=== PATIENT | male | born 1985 | race Caucasian/White ===

== ENCOUNTER 2017-04-24 11:54 | Inpatient (IN) | payer BC, OTHER ==
[~2017-04-24] VITALS: Ht 172.7 cm; Wt 71.8 kg
[~2017-04-24 11:54] MED LIST: DICL1GEL28 TOP; MULT-506 PO
[2017-04-24] MEDS ORDERED: LORAZEPAM 1 MG TAB PO STA (13:00)
[2017-04-24] MEDS ORDERED: SERT50TA PO (13:03)
[2017-04-24] MEDS ORDERED: LAMO100T16 PO (13:03)
[2017-04-24] MEDS ORDERED: LISD30CA4 PO (13:03)
[2017-04-24] MEDS ORDERED: HYDR-3124 PO (13:03)
[2017-04-24 13:10] LABS: BASO % 0.2 %; BASO ABS # 0.01 K/uL (0-0.2); EOS % 1.3 %; EOS ABS # 0.07 K/uL (0-0.5); HEMATOCRIT 47.1 % (42-52); HEMOGLOBIN 16.8 g/dL (14.0-18.0); IG# 0.01 K/uL (0.00-0.02); LYMPH % 26.5 %; LYMPH ABS # 1.48 K/uL (1.2-3.4); MEAN CELL VOLUME 84.3 fL (80-100); MEAN CORPUSCULAR HEMOGLOBIN 30.1 pg (25-34); MEAN CORPUSCULAR HGB CONC 35.7 g/dl (32-36); MEAN PLATELET VOLUME 9.5 fL (7.4-10.4); MONO % 6.3 %; MONO ABS # 0.35 K/uL (0.11-0.59); NEUT % 65.5 %; NEUT ABS # 3.67 K/uL (1.4-6.5); PLATELET COUNT 206 K/uL (130-400); RED CELL DISTRIBUTION WIDTH SD 39.7 fL (36.4-46.3); WHITE BLOOD COUNT 5.59 K/uL (4.8-10.8)
--- NOTE | 2017-04-24 13:20 | EMERGENCY ROOM VISIT NOTE ---
History Report prepared by Arian: Heidi Luu Under the Supervision of: Dr. Jj Villatoro M.D. First contact with patient: 12:54 Chief Complaint: MENTAL HEALTH EVALUATION Stated Complaint: Mental Health Evaluation History of Present Illness The patient is a 31 year old male with a past medical history of bipolar disorder who presents to the ED with a cc of worsening suicidal ideations beginning 4 weeks ago. The patient states that he began having marital problems one year ago. Around that time, he began battling with his for custody of their child. The patient states that he spent 6 months sleeping on the couches of family and friends, as well as in his car. He notes he became upset when he found out his had been seeing someone else while they were . The patient denies any irregular sleeping patterns. The patient states he is currently suicidal, but does not have the urge to hurt anyone else. He notes that he drinks a couple of beers 3-4 times a week. The patient states that the only time he did drugs was 3 days ago, noting he did LSD with a friend. The patient states he is willing to do inpatient treatment. He notes the last time he smoked was 6 weeks ago, noting he last smoked marijuana in December. The patient states that his last bipolar manic episode was 2 years ago, noting he is on medication for his condition. Source of History: patient Onset: 4 weeks ago Position: other (global) Quality: other (mental health evaluation) Timing: worsening Review of Systems See HPI for pertinent positives and negatives. A total of ten systems were reviewed and were otherwise negative. Family History Patient reports no known family medical history. Social History Smoking Status: Current Every Day Smoker Marital Status: single Current/Historical Medications Scheduled Lamotrigine (Lamictal), 100 MG PO DAILY Lisdexamfetamine Dimesylate (Vyvanse), 30 MG PO 5XWK Sertraline (Zoloft), 50 MG PO DAILY Scheduled PRN Hydroxyzine Hcl (Atarax), 25 MG PO HS PRN for Anxiety/Insomnia Allergies Coded Allergies: No Known Allergies (Unverified , 04/24/17) Physical Exam Vital Signs Date Time Temp Pulse Resp B/P (MAP) Pulse Ox O2 Delivery O2 Flow Rate FiO2 04/24/17 14:00 83 16 138/101 100 Room Air 04/24/17 11:54 36.5 125 16 149/111 100 Room Air 04/24/17 11:54 36.5 125 16 149/111 100 Room Air Physical Exam GENERAL: Awake, alert, NAD HENT: Normocephalic, atraumatic. EYES: Dilated pupils, PERRL.Normal conjunctiva. Sclera non-icteric. NECK: Supple. No nuchal rigidity. FROM. RESPIRATORY: CTAB, no rhonchi, wheezing, crackles CARDIAC: RRR, no MRG ABDOMEN: Soft, NTND, BS+ MSK: No chest wall TTP, no LE edema NEURO: GCS 15, CN 2-12 intact, moves all 4s on command SKIN: No rash or jaundice noted. PSYCH: Depressed mood. Averted gaze. Medical Decision & Procedures Laboratory Results 04/24/17 12:39 Red Blood Count 5.59, Mean Corpuscular Volume 84.3, Mean Corpuscular Hemoglobin 30.1, Mean Corpuscular Hemoglobin Concent 35.7, Mean Platelet Volume 9.5, Neutrophils (%) (Auto) 65.5, Lymphocytes (%) (Auto) 26.5, Monocytes (%) (Auto) 6.3, Eosinophils (%) (Auto) 1.3, Basophils (%) (Auto) 0.2, Neutrophils # (Auto) 3.67, Lymphocytes # (Auto) 1.48, Monocytes # (Auto) 0.35, Eosinophils # (Auto) 0.07, Basophils # (Auto) 0.01 04/24/17 12:39 Test 04/24/17 12:15 04/24/17 12:39 Urine Color YELLOW Urine Appearance CLEAR (CLEAR) Urine pH 5.5 (4.5-7.5) Urine Specific [place] 1.025 (1.000-1.030) Urine Protein 1+ (NEG) Urine Glucose (UA) NEG (NEG) Urine Ketones NEG (NEG) Urine Occult Blood NEG (NEG) Urine Nitrite NEG (NEG) Urine Bilirubin NEG (NEG) Urine Urobilinogen NEG (NEG) Urine Leukocyte Esterase NEG (NEG) Urine WBC (Auto) 1-5 /hpf (0-5) Urine RBC (Auto) 0-4 /hpf (0-4) Urine Hyaline Casts (Auto) 1-5 /lpf (0-5) Urine Epithelial Cells (Auto) 5-10 /lpf (0-5) Urine Bacteria (Auto) NEG (NEG) Urine Sperm (Auto) PRESENT (NOT PRESENT) Urine Opiates Screen NEG (NEG) Urine Methadone, Qualitative NEG (NEG) Urine Barbiturates NEG (NEG) Urine Phencyclidine (PCP) Level NEG (NEG) Ur Amphetamine/Methamphetamine POS (NEG) MDMA (Ecstasy) Screen NEG (NEG) Urine Benzodiazepines Screen NEG (NEG) Urine Cocaine Metabolite NEG (NEG) Urine Marijuana (THC) NEG (NEG) White Blood Count 5.59 K/uL (4.8-10.8) Red Blood Count 5.59 M/uL (4.7-6.1) Hemoglobin 16.8 g/dL (14.0-18.0) Hematocrit 47.1 % (42-52) Mean Corpuscular Volume 84.3 fL (80-100) Mean Corpuscular Hemoglobin 30.1 pg (25-34) Mean Corpuscular Hemoglobin Concent 35.7 g/dl (32-36) Platelet Count 206 K/uL (130-400) Mean Platelet Volume 9.5 fL (7.4-10.4) Neutrophils (%) (Auto) 65.5 % Lymphocytes (%) (Auto) 26.5 % Monocytes (%) (Auto) 6.3 % Eosinophils (%) (Auto) 1.3 % Basophils (%) (Auto) 0.2 % Neutrophils # (Auto) 3.67 K/uL (1.4-6.5) Lymphocytes # (Auto) 1.48 K/uL (1.2-3.4) Monocytes # (Auto) 0.35 K/uL (0.11-0.59) Eosinophils # (Auto) 0.07 K/uL (0-0.5) Basophils # (Auto) 0.01 K/uL (0-0.2) RDW Standard Deviation 39.7 fL (36.4-46.3) RDW Coefficient of Variation 13.0 % (11.5-14.5) Immature Granulocyte % (Auto) 0.2 % Immature Granulocyte # (Auto) 0.01 K/uL (0.00-0.02) Anion Gap 5.0 mmol/L (3-11) Est Creatinine Clear Calc Drug Dose 86.4 ml/min Estimated GFR () 92.3 Estimated GFR (Non- 79.6 BUN/Creatinine Ratio 18.1 (10-20) Calcium Level 9.0 mg/dl (8.5-10.1) Total Bilirubin 0.4 mg/dl (0.2-1) Aspartate Amino Transf (AST/SGOT) 26 U/L (15-37) Alanine Aminotransferase (ALT/SGPT) 39 U/L (12-78) Alkaline Phosphatase 84 U/L (45-117) Total Protein 8.5 gm/dl (6.4-8.2) Albumin 4.3 gm/dl (3.4-5.0) Globulin 4.2 gm/dl (2.5-4.0) Albumin/Globulin Ratio 1.0 (0.9-2) Thyroid Stimulating Hormone (TSH) 2.380 uIu/ml (0.300-4.500) Salicylates Level < 1.7 mg/dl (2.8-20) Acetaminophen Level < 2 ug/ml (10-30) Ethyl Alcohol mg/dL < 3.0 mg/dl (0-3) Laboratory results reviewed by me Medications Administered Medications (Trade) Dose Ordered Sig/[place] Start Time Stop Time Status Last Admin Dose Admin Lorazepam (Ativan Tab) 1 mg NOW STAT PO 04/24/17 13:00 04/24/17 13:02 DC 04/24/17 13:18 1 MG Hydroxyzine HCl (Vistaril Tab) 50 mg HSZ PRN PO 04/24/17 16:45 05/24/17 16:44 04/25/17 01:20 50 MG ED Course 1307: The patient was evaluated in room A5. A complete history and physical exam was performed. 1455: I reevaluated the patient, who was resting comfortably. I discussed the findings with the patient, who verbalized complete understanding and agreement. The case maker try to admit the patient as an inpatient. 1602: Discussed the patient's case with Dr. Alesia Powell, [facility] [place] The patient will be evaluated for further treatment the patient will be admitted as an inpatient. Medical Decision The patient is a 31 year old male with a past medical history of bipolar disorder who presents to the ED with a cc of worsening suicidal ideations beginning 4 weeks ago. Differential diagnosis: Etiologies such as mood disorder, infection, hypoglycemia, electrolyte abnormalities, cardiac sources, intracerebral event, toxicologic, neurologic, as well as others were entertained. Seen and evaluated at the bedside. Patient w/ worsening social situation, marital and child custody problems. Patient w/ implied intent of SI w/ hanging. Patient medically cleared. UDS showed +meth. Patient admitted voluntarily to [address] [place] [address]. Medication Reconcilliation Current Medication List: was personally reviewed by me Blood Pressure Screening Patient's blood pressure: Normal blood pressure Consults Time Called: 1602 Consulting Physician: YONNY Cavazos. Returned Call: 1602 Discussed the patient's case with YONNY Cavazos. The patient will be evaluated for further treatment the patient will be admitted as an inpatient. Impression Primary Impression: Suicidal ideation Additional Impression: Mood disorder of depressed type Scribe Attestation The scribe's documentation has been prepared under my direction and personally reviewed by me in its entirety. I confirm that the note above accurately reflects all work, treatment, procedures, and medical decision making performed by me. Departure Information Dispostion Admitted as an inpatient Referrals No Doctor, Assigned (PCP) Forms HOME CARE DOCUMENTATION FORM, IMPORTANT VISIT INFORMATION Patient Instructions My [facility] Problem Qualifiers
[2017-04-24 13:31] LABS: ALBUMIN 4.3 gm/dl (3.4-5.0); CREATININE 1.22 mg/dl (0.60-1.40); POTASSIUM 4.5 mmol/L (3.5-5.1)
[2017-04-24 13:41] LABS: TOTAL PROTEIN 8.5 gm/dl (6.4-8.2)
[2017-04-24] MEDS ORDERED: hydrOXYzine HCL 25 MG TAB PO PRN (16:45)
[2017-04-24] MEDS ORDERED: SODIUM CHLORIDE 0.65% NA SOLN 45 ML (OCEAN) PRN (16:45)
[2017-04-24] MEDS ORDERED: ACETAMINOPHEN 325 MG TAB PO PRN (16:45)
[2017-04-24] MEDS ORDERED: ALUMINUM/MAGNESIUM SUSP 30 ML UDC PO PRN (16:45)
[2017-04-24] MEDS ORDERED: MAGNESIUM HYDROXIDE SUSP 30 ML UDC PO PRN (16:45)
[2017-04-24] MEDS ORDERED: BISMUTH SUBSALICYLATE PER ML OMNICELL CHARGE PO PRN (16:45)
[2017-04-24 17:21] VITALS: O2SAT 97
[2017-04-24 18:46] VITALS: BP 108/67; PULSE 76; TEMP 37.3; BMI 24.1
[2017-04-24] MEDS ORDERED: INFLUENZA VIRUS QUAD VACCINE 0.5 ML SYR IM. ONE (21:30)
[2017-04-24] MEDS ORDERED: INFLUENZA ADMINISTRATION CHARGE ONE (21:30)
--- NOTE | 2017-04-24 22:42 | NUR ---
Pt admitted to [facility] on a 201 voluntary commitment for suicidal thinking. Pt has had a difficulty relationship with is over the past several months. He and his had just finished packing up a [employer] truck to move from [place] to [place] (for his to work on her PHD) and she told him that she thought they should separate and stay at their place in [place]. His was staying with her parents and the pt was coming to see their 3 year old at his 's parents and then sleeping in his car. Pt eventually got his own apartment locally with two [employer] students and his did not want their son to stay with the pt at his apartment. The pt's then filed for custody of their son. Eventually the pt's withdrew the petition for custody and the pt moved in with his at her parents and they tried to reconcile. The pt's revealed to him that she had been seeing another man and the pt went and slept with another woman. The pt feels that he can not trust his and she does not want to sleep in the same bed as the pt because she slept with someone else. The pt said that they now live in a "co-parenting house" for the sake of their son. He has an apartment in the basement and his and son have a bedroom on the third floor. The pt said that he feels that he is getting mixed signals from his . He feels that if she would just be able to tell him it's over then he feels that he would be able to start the healing process. The pt was initially irritable and guarded but opened up and was more cooperative the more he talked. He was able to eat all of his dinner. Pt went to bed shortly after his admission assessment was completed. Pt continues on q 15 minute checks.
[2017-04-25] MEDS: hydrOXYzine HCL 25 MG TAB PO PRN (01:20)
--- NOTE | 2017-04-25 01:22 | NUR ---
Patient requested a sleep aid and received vistaril 50 mg po. Addendum: 04/25/17 at 0216 by Mishel Mathew RN Vistaril appears to be effective as Pierre is currently asleep.
--- NOTE | 2017-04-25 04:31 | NUR ---
Patient's admission orders were reviewed.
[2017-04-25 06:50] VITALS: BP_SYST 104; BP_SYST 113; BP_DIAS 69; BP_DIAS 74; PULSE 56; PULSE 73; TEMP 36.9
[2017-04-25] MEDS ORDERED: SERTRALINE HCL 50 MG TAB PO SCH (09:00)
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
[2017-04-25] MEDS ORDERED: SERTRALINE HCL 50 MG TAB PO ONE (11:00)
--- NOTE | 2017-04-25 12:13 | NUR ---
Pt signed his treatment plan. He admits was going to hang self prior to admission and it was not just for attention. States this has been building for 2 mos. Reports estranged is giving mixed messages and he would like the relationship to continue but not if the the mixed signals continue. is upset pt had a quick affair after he became aware that she had had an affair. Pt says this was in response to her emotional affair and he informed her immediately. States he wants to make a decision to stay together or get the divorce. Pt now stating he does not want to but wants to live to "see my kid grow up." Pt is cooperative and pleasant and is motivated for treatment. His affect is blunted with dysphoric mood. Admits to severe depression and anxiety.
--- NOTE | 2017-04-25 13:36 | NUR ---
Called pt's and scheduled family session for 04/26/2017 at 9:30 am
--- NOTE | 2017-04-25 21:00 | NUR ---
Pt left [facility] within 5 minutes after it started.He says he left because he was preoccupied by his anxiety regarding the status of his marriage.He is planning to have a marital session tomorrow w/[place] to discuss status of their marriage.His and son were in to visit.He says the visit w/ son went well did not really want to see his ,felt awkward.He did attend all of [facility] Community Meeting.He spends his free time is the Activity Room working on a [place] Addendum: 04/25/17 at 2109 by Romeo Ivey [facility] saw kameron,alone.
[2017-04-25 23:23] VITALS: Ht 172.7 cm; Wt 71.8 kg
[2017-04-26] MEDS: hydrOXYzine HCL 25 MG TAB PO PRN (01:15)
--- NOTE | 2017-04-26 01:18 | NUR ---
Patient requested and received vistaril 50 mg po as a sleep aid stating he is having difficulty getting back to sleep and last night "the vistaril knocked me right out". 24 hour chart orders reviewed. Addendum: 04/26/17 at 0606 by Mishel Mathew RN Vistaril was effective as Pierre was asleep by 0045 and slept the rest of the night. Addendum: 04/26/17 at 0608 by Mishel Mathew RN Above time should be 0145 not 0045.
[2017-04-26 06:48] VITALS: BP_SYST 114; BP_DIAS 69; BP_DIAS 71; PULSE 57; PULSE 70; TEMP 36.8
[2017-04-26] MEDS: SERTRALINE HCL 50 MG TAB PO SCH (08:49)
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
--- NOTE | 2017-04-26 12:10 | NUR ---
Pt is very dysphoric with flat affect after a mtg with . States is noncommittal about the marriage and he would like for her to make a decision now while he is being treated in the hospital. Pt hopes wants to work on the marriage but says not knowing is also very difficult on him. Rather irritable about this as well. He chose not to attend grp therapy and instead sat in the activity room putting a puzzle together by self. Does not seem interested in socializing with the other pts. He denies active suicidal ideation and homicidal ideation while on the unit. He does not feel safe to be at home. Signed his treatment plan review stating he would be here another 5-7 days.
--- NOTE | 2017-04-26 13:14 | Psychiatric Progress Notes ---
Progress Note Date of Service Apr 26, 2017. Interval History Kenny Amanda is a 31-year-old male admitted on Apr 24, 2017 at 17:04 who currently lives in alone in [place], [place]. Kenny Amanda was admitted on a 201 voluntary agreement. Patient is admitted from home. The patient was brought to the ED by the police after he had been tazzed in the [place] while planning to hang himself. Information provided by the patient is considered to be reliable. Chief Complaint "...ok...". Subjective Patient was seen & assessed interval progress reviewed with Treatment Team. - slept decently with PRN vistaril - family meeting with this morning - SI denied last evening Pt was seen today to assess progress since admission. Pt is minimally talkative and appears to be distressed. Pt states his meeting with his did not go well this morning and he is frustrated and upset. He reports he was looking for answers that would help in his recovery process and was unable to get them at today's meeting. Pt states he is willing to work on reconciling their relationship, but feels he needs to be prepared prior to discharge if his has other intentions. He states there are a lot of trust issues and she is unwilling to open up about her thoughts. Pt says, "this whole thing is what brought me in here, I don't want to leave when nothing is resolved, what will that help?" Pt states he is trying to make the most of his time here and focus on his treatment, but feels he is unable to process his thoughts without answers as to the state of his marriage. He states he was anxious and nervous prior to the meeting and now feels "gloomy and dark". Pt says he left the meeting "paranoid and vulnerable" due to his 's inability to communicate her thoughts with him. Pt reports occasional SI since his meeting today with thoughts of hopelessness and uncertainty. Pt states he slept well last even after requesting PRN Vistaril around 1:00am. He denies side effects to increasing dose of Lamictal and has not noticed a huge difference in his mood symptoms, especially considering the result of his family meeting. Review of Systems Psych: denies symptoms other than stated above Constitutional: denied Cardiovascular: denied GI: denied Neurologic: denied Remainder of 10 body systems also reviewed and denied other than noted above. Sleep Information Total Hours of Sleep: 4.25 Meal Information Percent of Breakfast Consumed: 100 Percent of Lunch Consumed: 100 Percent of Dinner Consumed: 100 Mental Status Exam During interview pt is: alert and oriented, cooperative, guarded Appearance: appropriately dressed, appropriately groomed Eye contact is: poor Motor behavior is: steady gait & station, no abnormal motor movements Speech: normal in rate, rhythm & volume, other (minimal) Affect: depressed, anxious Mood is: depressed, anxious Thought process: goal directed, linear, logical Thought content: preoccupation (with status of relationship with ), reality based without delusions Suicidal thought are: present (occasional hopelessness with SI since meeting with ) Homicidal thoughts are: denied Hallucinations: denies auditory, denies visual Cognition: memory grossly intact, attention grossly intact, language grossly intact Intelligence estimated to be: average Insight: fair Judgement: impaired Impression This 31-year-old man presents with a known diagnosis of bipolar disorder, a diagnosis that was made approximately 2 years ago following a 6 week episode of arturo, with decreased desire for sleep, increased energy, expansive and irritable mood, and greatly increased activity levels. He also has a known diagnosis of ADHD, diagnoses that was given to him as a child. He reports that he takes Vyvanse 30 mg daily for ADHD, but notes that he does not take it except for when he is working. Patient reports that he has become progressively more distressed and anxious since November of this year when his especially announced her plan to leave him. He reports SI for the past month. The current admission was precipitated by an episode during which the patient wrapped a rope in the presence of his , indicated his intent to commit suicide by hanging, and the episode resulted in the police forrest admitted with the patient being tasered and brought to the emergency room. Pt' s dose of Lamictal was increased to 125mg and sertraline was increased to 75 mg daily. Will also continue hydroxyzine 25 mg q4h as needed for anxiety and 50 mg at bedtime as needed for sleep. Vyvanse will likely not be ordered during patient's hospitalization. Plan (1) Bipolar 1 disorder, depressed 04/25/17 -- Today, we will increase his dose of lamotrigine from 100 mg daily 250 mg daily. Also, while we are aware of the risk of potential inducing a manic episode in this patient, he reports that he has responded favorably to sertraline in terms of his anxiety levels, and today I'm will increase his dose of sertraline from 50 mg daily to 75 mg daily. 04/26 - Pt feeling defeated by family meeting with . This is apparent during today's interaction. Pt states he has not yet noticed improvement in his mood and feels that this meeting has caused his progress to halt until he is able to get answers from his . Pt denies side effects to medications and states he has been tolerating them well. Will continue on 125mg of Lamictal as patient states he increases by 25mg every week rather than following traditional taper scheduling. Will keep dose of sertraline at 75mg daily and reassess when patient is better able to reflect on the meeting and his situation. (2) Suicidal ideation 04/25/17 -- today, the patient says that he is not having suicidal thoughts "right now," but says that these thoughts have been intermittent. He does agree to notify staff if suicidal thoughts recur, and he also contracts for safety in the hospital. 04/26 - Pt reports occasional hopelessness since meeting today as things seem to be "gloomy". Pt continues to remain optimistic about his treatment, but frustrated by lack of answers necessary for him to process and move forward. Discharge / Aftercare Planning Primary Care Physician: Name: amy Psychiatrist: Name: Dr. Maggie Burton [facility] Date of Appointment: May 16, 2017 Time of Appointment: 12:45 pm Therapist: Name: Rickey Humphrey [facility] (..Bring Credit Card to appointment ) Date of Appointment: May 01, 2017 Time of Appointment: 8:00 am Appointment Notes: [address] [facility] [address] Visit Code E&M Code: 32282 Inventory Assets Strengths: Employed. Supportive friends. Supportive family. Devoted father. Needs: Dysfunctional coping strategies. Marital discord. Suicidal ideation and threats. Risk Factors Assessment Male: Yes : Yes /single/: No (the patient has been from his since November 2016.) Higher / Fall in social status: No Health problems: No Mental Health Diagnoses: Yes Substance use disorders: No Previous attempt: No Family history of suicide: No Previous psychiatric stay: No Hopelessness: No Smoker: No Protective Factors Assessment : Yes Employed: Yes Stable relationships: Yes Supportive family: Yes Good rapport with provider: Yes Absence of risk factors above: No Data Vital Signs Last 24 Hrs: Date Time Temp Pulse Resp B/P (MAP) Pulse Ox O2 Delivery O2 Flow Rate FiO2 04/26/17 06:48 36.8 57 20 114/71 70 114/69 Meds Administered Last 24 Hrs: Meds Administered (Past 24Hrs) Medications (Trade) Dose Ordered Sig/South Route Start Time Stop Time Status Last Admin Dose Admin Hydroxyzine HCl (Vistaril Tab) 50 mg HSZ PRN PO 04/24/17 16:45 05/24/17 16:44 04/26/17 01:15 50 MG Influenza Virus Vaccine Quadrival (Flucelvax Quad Vaccine) 0.5 ml ONCE ONCE IM. 04/24/17 21:30 04/24/17 21:31 DC 04/25/17 21:53 0.5 ML Sertraline HCl (Zoloft Tab) 75 mg QAM PO 04/26/17 09:00 05/26/17 08:59 04/26/17 08:49 75 MG Sertraline HCl (Zoloft Tab) 75 mg NOW ONCE PO 04/25/17 11:00 04/25/17 11:01 DC 04/25/17 11:40 75 MG Lamotrigine (Lamictal Tab) 125 mg 1215 ONCE PO 04/25/17 12:15 04/25/17 12:16 DC 04/25/17 12:45 125 MG Lamotrigine (Lamictal Tab) 125 mg DAILY PO 04/26/17 09:00 05/26/17 08:59 04/26/17 08:49 125 MG
--- NOTE | 2017-04-26 14:50 | NUR ---
Provided pt 1:1 today for 15 minutes. Pt was lethargic as he had just woken up from a nap. Pt discussed his family meeting which happened earlier in the day, and discussed his frustration with his 's inability to make a decision on whether or not she is interested in continuing the marriage in the context of new boundaries moving forward. Pt discussed that he feels that his will not fully invest in their relationship but will then insert herself into activities that the pt wishes to do with his son on his days to have him, or invites the pt to her parent's home. Encouraged pt to express what his boundaries are to his if they choose to not remain in the marriage. Pt stated that he has tried to do this but that his continues to do these things, and that he is "just tired of having to say no all the time." Discussed internal vs external locus of control as well as that even though it can be frustrating, we cannot control the actions of others. Also discussed emotional regulation and how to attempt to make choices in what is worth having a emotional response to. Pt was understanding of this and ended 1:1 to make a phone call. Will continue to encourage, educate and support.
--- NOTE | 2017-04-26 14:50 | NUR ---
Pt asked to speak with me and informed me that he called his and told her he wants to take some time away from the relationship. 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 States he plans to take one day at a time instead of worrying so much about the future when he doesn't know what the future holds.
--- NOTE | 2017-04-26 22:56 | NUR ---
Kenny rated his mood as an "8" this evening and stated he was feeling "Conscious" of the fact that that he had been managing his mental health symptoms for 2 to 3 months before the events leading toward his admission. Two weeks ago he stopped taking things "One day at a time" and this lead toward him worrying about how he was going to feel "6 months from now" a "Year from now." He stated that he was doing better this evening as he was feeling like he was not "Lost in his emotions." Kenny spent much of the evening working on a puzzle which he felt was helpful in keeping his thoughts distracted. He stated he was feeling better because he also was figuring out where things stood with his relationship with his as opposed to things being so ambiguous. He stated that she would send him very mixed signals of not wanting to be together then wanting to work on the relationship before pulling away again and he stated this was part of what was making his mental state so much worse. Kenny did tell the group about trying to hang himself and his very out of character behavior of trying to run away from the police and getting tased by them. Kenny has been attending all programming and participating in the group discussion. He is able to contract for safety on the unit. He was quickly visited by his this evening who dropped off a pizza and his shoes and jacket which she had cleaned. He was then also visited by a friend of his for quite awhile.
[2017-04-27] MEDS: hydrOXYzine HCL 25 MG TAB PO PRN ×2 (00:38→23:45)
--- NOTE | 2017-04-27 00:39 | NUR ---
Pierre requested and received vistaril 50 mg po as a sleep aid.
--- NOTE | 2017-04-27 01:41 | NUR ---
Vistaril appears to be effective. 24 hour chart orders reviewed.
[2017-04-27 06:47] VITALS: BP_SYST 103; BP_SYST 99; BP_DIAS 54; BP_DIAS 66; PULSE 59; PULSE 61; TEMP 36.9
[2017-04-27] MEDS: SERTRALINE HCL 50 MG TAB PO SCH (08:53)
--- NOTE | 2017-04-27 12:53 | NUR ---
Pt noted to attend all unit programming w/ minimal staff prompts.He has been spending some of his free time either walking laps or working on a jig- saw puzzle which he feels helps him distract from his anxiety.Pt describes his overall mood is improved,feels less tense and anxious.He attributes him improvement as a carry over from yesterday making decision continue marital separation.He feels that making this decision has given him a sense of empowered him and given him a sense of control in the relationship.He has been working on his better managing his feelings by taking it day by day as to not fortune telling error of projection.
--- NOTE | 2017-04-27 14:06 | NUR ---
Pt was noted while walking laps having an elevated mood and singing songs.
--- NOTE | 2017-04-27 15:14 | Psychiatric Progress Notes ---
Progress Note Date of Service Apr 27, 2017. Interval History Kenny Amanda is a 31-year-old male admitted on Apr 24, 2017 at 17:04 who currently lives in alone in [place], [place]. Kenny Amanda was admitted on a 201 voluntary agreement. Patient is admitted from home. The patient was brought to the ED by the police after he had been tazzed in the [place] while planning to hang himself. Information provided by the patient is considered to be reliable. Chief Complaint "[]". Subjective Patient was seen & assessed interval progress reviewed with [Treatment Team] [ Nursing] Sleep Information Total Hours of Sleep: 4.50 Meal Information Percent of Breakfast Consumed: 100 Percent of Lunch Consumed: 100 Percent of Dinner Consumed: 100 Mental Status Exam During interview pt is: alert and oriented, cooperative, guarded Appearance: appropriately dressed, appropriately groomed Eye contact is: poor Motor behavior is: steady gait & station, no abnormal motor movements Speech: normal in rate, rhythm & volume, other (minimal) Affect: depressed, anxious Mood is: depressed, anxious Thought process: goal directed, linear, logical Thought content: preoccupation (with status of relationship with ), reality based without delusions Suicidal thought are: present (occasional hopelessness with SI since meeting with ) Homicidal thoughts are: denied Hallucinations: denies auditory, denies visual Cognition: memory grossly intact, attention grossly intact, language grossly intact Intelligence estimated to be: average Insight: fair Judgement: impaired Impression This 31-year-old man presents with a known diagnosis of bipolar disorder, a diagnosis that was made approximately 2 years ago following a 6 week episode of arturo, with decreased desire for sleep, increased energy, expansive and irritable mood, and greatly increased activity levels. He also has a known diagnosis of ADHD, diagnoses that was given to him as a child. He reports that he takes Vyvanse 30 mg daily for ADHD, but notes that he does not take it except for when he is working. Patient reports that he has become progressively more distressed and anxious since November of this year when his especially announced her plan to leave him. He reports SI for the past month. The current admission was precipitated by an episode during which the patient wrapped a rope in the presence of his , indicated his intent to commit suicide by hanging, and the episode resulted in the police forrest admitted with the patient being tasered and brought to the emergency room. Pt' s dose of Lamictal was increased to 125mg and sertraline was increased to 75 mg daily. Will also continue hydroxyzine 25 mg q4h as needed for anxiety and 50 mg at bedtime as needed for sleep. Vyvanse will likely not be ordered during patient's hospitalization. Plan (1) Bipolar 1 disorder, depressed 04/25/17 -- Today, we will increase his dose of lamotrigine from 100 mg daily 250 mg daily. Also, while we are aware of the risk of potential inducing a manic episode in this patient, he reports that he has responded favorably to sertraline in terms of his anxiety levels, and today I'm will increase his dose of sertraline from 50 mg daily to 75 mg daily. 04/26 - Pt feeling defeated by family meeting with . This is apparent during today's interaction. Pt states he has not yet noticed improvement in his mood and feels that this meeting has caused his progress to halt until he is able to get answers from his . Pt denies side effects to medications and states he has been tolerating them well. Will continue on 125mg of Lamictal as patient states he increases by 25mg every week rather than following traditional taper scheduling. Will keep dose of sertraline at 75mg daily and reassess when patient is better able to reflect on the meeting and his situation. (2) Suicidal ideation 04/25/17 -- today, the patient says that he is not having suicidal thoughts "right now," but says that these thoughts have been intermittent. He does agree to notify staff if suicidal thoughts recur, and he also contracts for safety in the hospital. 04/26 - Pt reports occasional hopelessness since meeting today as things seem to be "gloomy". Pt continues to remain optimistic about his treatment, but frustrated by lack of answers necessary for him to process and move forward. Discharge / Aftercare Planning Primary Care Physician: Name: none Psychiatrist: [facility] Date of Appointment: May 16, 2017 Time of Appointment: 12:45 pm Therapist: Name: Rickey Humphrey [employer] (..Bring Credit Card to appointment ) Date of Appointment: May 01, 2017 Time of Appointment: 8:00 am Appointment Notes: [address] [place] [address] Inventory Assets Strengths: Employed. Supportive friends. Supportive family. Devoted father. Needs: Dysfunctional coping strategies. Marital discord. Suicidal ideation and threats. Risk Factors Assessment Male: Yes : Yes /single/: No (the patient has been from his since November 2016.) Higher / Fall in social status: No Health problems: No Mental Health Diagnoses: Yes Substance use disorders: No Previous attempt: No Family history of suicide: No Previous psychiatric stay: No Hopelessness: No Smoker: No Protective Factors Assessment : Yes Employed: Yes Stable relationships: Yes Supportive family: Yes Good rapport with provider: Yes Absence of risk factors above: No Data Vital Signs Last 24 Hrs: Date Time Temp Pulse Resp B/P (MAP) Pulse Ox O2 Delivery O2 Flow Rate FiO2 04/27/17 06:47 36.9 59 16 103/66 61 99/54 Meds Administered Last 24 Hrs: Meds Administered (Past 24Hrs) Medications (Trade) Dose Ordered Sig/South Route Start Time Stop Time Status Last Admin Dose Admin Sertraline HCl (Zoloft Tab) 75 mg QAM PO 04/26/17 09:00 05/26/17 08:59 04/27/17 08:53 75 MG Lamotrigine (Lamictal Tab) 125 mg DAILY PO 04/26/17 09:00 05/26/17 08:59 04/27/17 08:53 125 MG
--- NOTE | 2017-04-27 15:32 | Psychiatric Progress Notes ---
Progress Note Date of Service Apr 27, 2017. Interval History Kenny Amanda is a 31-year-old male admitted on Apr 24, 2017 at 17:04 who currently lives in alone in [place], [place]. Kenny Amanda was admitted on a 201 voluntary agreement. Patient is admitted from home. The patient was brought to the ED by the police after he had been tazzed in the [place] while planning to hang himself. Information provided by the patient is considered to be reliable. Chief Complaint "feeling better". Subjective Patient was seen & assessed interval progress reviewed with nursing. pt reports feeling better. feels has realized how much was projecting out negative emotional processes and was desperately trying to make things work with his . He has decided to let that go and is now ok with separation/divorce aspects and seeking to limit contact with his to be co-parenting concerns to help him with adjusting to this. He is addressing his "shoulding himself" tendencies and working on a more self compassionate approach. he is active in groups and interacting with staff and peer. He denied SI or HI. He denied manic symptoms. He denied any rash or SJS concerns or s/e. He reports sleeping is improved and that feels more nl in energy although took a nap after lunch. He reports normal good appetite. He is feeling more hopeful and positive about his life. He is looking forward to a friend being in town and his son's birthday and upcoming appt with James Humphrey for outpt therapy. Review of Systems Constitutional: No fever, No chills, No sweats, No weight loss, No weakness, No fatigue, No problem reported Cardiovascular: No chest pain, No orthopnea, No PND, No edema, No claudication , No palpitations, No problem reported Abdomen: No pain, No nausea, No vomiting, No diarrhea, No constipation, No GI bleeding, No problem reported Musculoskeletal: No joint pain, No muscle pain, No swelling, No calf pain, No problem reported Psychiatric: + problem reported (as per hpi ) Integumentary: No rash, No itch, No new/changing skin lesions, No color change , No bleeding, No problem reported Sleep Information Total Hours of Sleep: 4.50 Meal Information Percent of Breakfast Consumed: 100 Percent of Lunch Consumed: 100 Percent of Dinner Consumed: 100 Mental Status Exam During interview pt is: alert and oriented, cooperative, guarded Appearance: appropriately dressed, appropriately groomed Eye contact is: poor Motor behavior is: steady gait & station, no abnormal motor movements Speech: normal in rate, rhythm & volume, other (minimal) Affect: other (subject approapite full range and normal affect ) Mood is: other (better, upbeat) Thought process: goal directed, linear, logical Thought content: reality based without delusions, other Suicidal thought are: denied Homicidal thoughts are: denied Hallucinations: denies auditory, denies visual Cognition: memory grossly intact, attention grossly intact, language grossly intact Intelligence estimated to be: average Insight: fair Judgement: impaired Impression This 31-year-old man presents with a known diagnosis of bipolar disorder, a diagnosis that was made approximately 2 years ago following a 6 week episode of arturo, with decreased desire for sleep, increased energy, expansive and irritable mood, and greatly increased activity levels. He also has a known diagnosis of ADHD, diagnoses that was given to him as a child. He reports that he takes Vyvanse 30 mg daily for ADHD, but notes that he does not take it except for when he is working. Patient reports that he has become progressively more distressed and anxious since November of this year when his especially announced her plan to leave him. He reports SI for the past month. The current admission was precipitated by an episode during which the patient wrapped a rope in the presence of his , indicated his intent to commit suicide by hanging, and the episode resulted in the police forrest admitted with the patient being tasered and brought to the emergency room. Pt' s dose of Lamictal was increased to 125mg and sertraline was increased to 75 mg daily. Will also continue hydroxyzine 25 mg q4h as needed for anxiety and 50 mg at bedtime as needed for sleep. Vyvanse will likely not be ordered during patient's hospitalization. Plan (1) Bipolar 1 disorder, depressed 04/25/17 -- Today, we will increase his dose of lamotrigine from 100 mg daily 250 mg daily. Also, while we are aware of the risk of potential inducing a manic episode in this patient, he reports that he has responded favorably to sertraline in terms of his anxiety levels, and today I'm will increase his dose of sertraline from 50 mg daily to 75 mg daily. 04/26 - Pt feeling defeated by family meeting with . This is apparent during today's interaction. Pt states he has not yet noticed improvement in his mood and feels that this meeting has caused his progress to halt until he is able to get answers from his . Pt denies side effects to medications and states he has been tolerating them well. Will continue on 125mg of Lamictal as patient states he increases by 25mg every week rather than following traditional taper scheduling. Will keep dose of sertraline at 75mg daily and reassess when patient is better able to reflect on the meeting and his situation. 04/27 -improved mood today, monitor for possibility of hypomanic symptoms given bipolar d/o and/or dropping back into more depressive presentation -given weariness of rash concerns, and past responses, pt aims to limit increases of Lamictal by 25mg a week, given improvement in presentation today and only just now raised to 125mg yesterday, maintain meds unchanged with likelihood to aim for 150mg qd in future, zoloft maintained at 75mg qd for now -reviewed safety plan with pt -monitor sleep as pt reports great sleep with staff reporting 4.5 hours of sleep during rehabilitation services counselor, pt did take an early afternoon nap though (2) Suicidal ideation 04/25/17 -- today, the patient says that he is not having suicidal thoughts "right now," but says that these thoughts have been intermittent. He does agree to notify staff if suicidal thoughts recur, and he also contracts for safety in the hospital. 04/26 - Pt reports occasional hopelessness since meeting today as things seem to be "gloomy". Pt continues to remain optimistic about his treatment, but frustrated by lack of answers necessary for him to process and move forward. 04/27 - denied si today, improved spirits expressed by pt and noted by staff. pt feels he is moving forward and that has shifted gears Discharge / Aftercare Planning Primary Care Physician: Name: none Psychiatrist: Name: Dr. Serrano - [facility] Date of Appointment: May 16, 2017 Time of Appointment: 12:45 pm Therapist: Name: Rickey Humphrey [employer] (..Bring Credit Card to appointment ) Date of Appointment: May 01, 2017 Time of Appointment: 8:00 am Appointment Notes: [address] [facility] [address] Visit Code E&M Code: 67000 Therapy Code: 70194 supportive recpetive, reviewing psychosocial stressors CBT aspects Inventory Assets Strengths: Employed. Supportive friends. Supportive family. Devoted father. Needs: Dysfunctional coping strategies. Marital discord. Suicidal ideation and threats. Risk Factors Assessment Male: Yes : Yes /single/: No (the patient has been from his since November 2016.) Higher / Fall in social status: No Health problems: No Mental Health Diagnoses: Yes Substance use disorders: No Previous attempt: No Family history of suicide: No Previous psychiatric stay: No Hopelessness: No Smoker: No Protective Factors Assessment : Yes Employed: Yes Stable relationships: Yes Supportive family: Yes Good rapport with provider: Yes Absence of risk factors above: No Data Vital Signs Last 24 Hrs: Date Time Temp Pulse Resp B/P (MAP) Pulse Ox O2 Delivery O2 Flow Rate FiO2 04/27/17 06:47 36.9 59 16 103/66 61 99/54 Meds Administered Last 24 Hrs: Meds Administered (Past 24Hrs) Medications (Trade) Dose Ordered Sig/[place] Start Time Stop Time Status Last Admin Dose Admin Sertraline HCl (Zoloft Tab) 75 mg QAM PO 04/26/17 09:00 05/26/17 08:59 04/27/17 08:53 75 MG Lamotrigine (Lamictal Tab) 125 mg DAILY PO 04/26/17 09:00 05/26/17 08:59 04/27/17 08:53 125 MG
--- NOTE | 2017-04-27 23:00 | NUR ---
Pierre has continued to exhibit an elevated mood and psychomotor agitation throughout the evening having a difficult time sitting still at times especially while watching the [place] game this evening which he was very interested in. Pierre rated his mood as an "8" this evening and stated that he was feeling "Collected" as he felt like his thoughts were more organized and that he has been able to challenge the negative thoughts that he had been having throughout the day. The patient did talk to this staff after community meeting in relation to another male peer who was acting out and making threats. Security had to be called to help assist with this patient and Pierre was stating that this was causing some anxiety for him because it was reminding him of his interaction with the police chasing him through the [place] and tasing him. Pierre has been spending his free time out of his room being very interactive with his peers talking, and teaching a female peer how to play chess. Pierre is denying having active suicidal ideations at this time.
--- NOTE | 2017-04-27 23:47 | NUR ---
Patient requested and received vistaril 50 mg po as a sleep aid. Addendum: 04/28/17 at 0105 by Mishel Mathew RN Vistaril appears to be effective as Pierre is currently asleep.
--- NOTE | 2017-04-28 02:39 | NUR ---
24 hour chart orders reviewed.
[2017-04-28 06:57] VITALS: BP_SYST 101; BP_SYST 120; BP_DIAS 67; BP_DIAS 79; PULSE 52; PULSE 61; TEMP 36.9
[2017-04-28] MEDS: SERTRALINE HCL 50 MG TAB PO SCH (09:44)
--- NOTE | 2017-04-28 13:12 | NUR ---
Pt noted to attend and actively participate in all unit programming w/minimal staff prompts.He endorses his empathy towards others is superficial,w/o it being genuine and longstanding.He describes his overall mood is improving and is noted to singing while lapping the halls.At the beginning of Group therapy he began to sign and announced to the group that they should do a musical and he would choreograph the dance steps.
--- NOTE | 2017-04-28 17:38 | Psychiatric Progress Notes ---
Progress Note Date of Service Apr 28, 2017. Interval History Kenny Amanda is a 31-year-old male admitted on Apr 24, 2017 at 17:04 who currently lives in alone in [place], [place]. Kenny Amanda was admitted on a 201 voluntary agreement. Patient is admitted from home. The patient was brought to the ED by the police after he had been tazzed in the [place] while planning to hang himself. Information provided by the patient is considered to be reliable. Chief Complaint "doing well". Subjective Patient was seen & assessed interval progress reviewed with nursing. pt reports feeling good and doing well and feels that could be ready for discharge late tomorrow. pt denied si or hi, or hypomanic symptoms, reports mood is impacted some by his separation form his but that does not feel depressed about it at this point. Was in midst of visit with and son when had assessment, adjusto writer operator was willing to see him after visit done but pt was open to and express preference to have assessment then. Pt expressed some ambivalence about the contact with his and stated that she was being supportive to him and that he was not looking to engage further with her then in terms of dealing with their son. Pt is having a friend visit him tomorrow night. He is aiming for a half day off on day after discharge to help settle back into work. concentration is intact. no rash denied s/e Review of Systems Constitutional: No fever, No chills, No sweats, No weight loss, No weakness, No fatigue, No problem reported Respiratory: No cough, No sputum, No wheezing, No shortness of breath, No dyspnea on exertion, No dyspnea at rest, No hemoptysis, No problem reported Cardiovascular: No chest pain, No orthopnea, No PND, No edema, No claudication , No palpitations, No problem reported Abdomen: No pain, No nausea, No vomiting, No diarrhea, No constipation, No GI bleeding, No problem reported Psychiatric: + problem reported (as above ) Integumentary: No rash, No itch, No new/changing skin lesions, No color change , No bleeding, No problem reported Sleep Information Total Hours of Sleep: 5.25 Meal Information Percent of Breakfast Consumed: 100 Percent of Lunch Consumed: 100 Percent of Dinner Consumed: 100 Mental Status Exam During interview pt is: alert and oriented, cooperative, guarded Appearance: appropriately dressed, appropriately groomed Eye contact is: poor Motor behavior is: steady gait & station, no abnormal motor movements Speech: normal in rate, rhythm & volume, other (minimal) Affect: mood congruent Mood is: other (good) Thought process: goal directed, linear, logical Thought content: reality based without delusions, other Suicidal thought are: denied Homicidal thoughts are: denied Hallucinations: denies auditory, denies visual Cognition: memory grossly intact, attention grossly intact, language grossly intact Intelligence estimated to be: average Insight: fair Judgement: fair Impression This 31-year-old man presents with a known diagnosis of bipolar disorder, a diagnosis that was made approximately 2 years ago following a 6 week episode of arturo, with decreased desire for sleep, increased energy, expansive and irritable mood, and greatly increased activity levels. He also has a known diagnosis of ADHD, diagnoses that was given to him as a child. He reports that he takes Vyvanse 30 mg daily for ADHD, but notes that he does not take it except for when he is working. Patient reports that he has become progressively more distressed and anxious since November of this year when his especially announced her plan to leave him. He reports SI for the past month. The current admission was precipitated by an episode during which the patient wrapped a rope in the presence of his , indicated his intent to commit suicide by hanging, and the episode resulted in the police forrest admitted with the patient being tasered and brought to the emergency room. Pt' s dose of Lamictal was increased to 125mg and sertraline was increased to 75 mg daily. Will also continue hydroxyzine 25 mg q4h as needed for anxiety and 50 mg at bedtime as needed for sleep. Vyvanse will likely not be ordered during patient's hospitalization. Plan (1) Bipolar 1 disorder, depressed 04/25/17 -- Today, we will increase his dose of lamotrigine from 100 mg daily 250 mg daily. Also, while we are aware of the risk of potential inducing a manic episode in this patient, he reports that he has responded favorably to sertraline in terms of his anxiety levels, and today I'm will increase his dose of sertraline from 50 mg daily to 75 mg daily. 04/26 - Pt feeling defeated by family meeting with . This is apparent during today's interaction. Pt states he has not yet noticed improvement in his mood and feels that this meeting has caused his progress to halt until he is able to get answers from his . Pt denies side effects to medications and states he has been tolerating them well. Will continue on 125mg of Lamictal as patient states he increases by 25mg every week rather than following traditional taper scheduling. Will keep dose of sertraline at 75mg daily and reassess when patient is better able to reflect on the meeting and his situation. 04/27 -improved mood today, monitor for possibility of hypomanic symptoms given bipolar d/o and/or dropping back into more depressive presentation -given weariness of rash concerns, and past responses, pt aims to limit increases of Lamictal by 25mg a week, given improvement in presentation today and only just now raised to 125mg yesterday, maintain meds unchanged with likelihood to aim for 150mg qd in future, zoloft maintained at 75mg qd for now -reviewed safety plan with pt -monitor sleep as pt reports great sleep with staff reporting 4.5 hours of sleep during zoning administrator, pt did take an early afternoon nap though 04/28 maintained meds unchanged, aim for processing of /son visit today as relationship with main stressor (2) Suicidal ideation 04/25/17 -- today, the patient says that he is not having suicidal thoughts "right now," but says that these thoughts have been intermittent. He does agree to notify staff if suicidal thoughts recur, and he also contracts for safety in the hospital. 04/26 - Pt reports occasional hopelessness since meeting today as things seem to be "gloomy". Pt continues to remain optimistic about his treatment, but frustrated by lack of answers necessary for him to process and move forward. 04/27 - denied si today, improved spirits expressed by pt and noted by staff. pt feels he is moving forward and that has shifted gears Discharge / Aftercare Planning Primary Care Physician: Name: none Psychiatrist: Name: Dr. Serrano - [facility] Date of Appointment: May 16, 2017 Time of Appointment: 12:45 pm Therapist: Name: Rickey Humphrey, [employer] (..Bring Credit Card to appointment ) Date of Appointment: May 01, 2017 Time of Appointment: 8:00 am Appointment Notes: [address] [place] [address] Visit Code E&M Code: 25180 Inventory Assets Strengths: Employed. Supportive friends. Supportive family. Devoted father. Needs: Dysfunctional coping strategies. Marital discord. Suicidal ideation and threats. Risk Factors Assessment Male: Yes : Yes /single/: No (the patient has been from his since November 2016.) Higher / Fall in social status: No Health problems: No Mental Health Diagnoses: Yes Substance use disorders: No Previous attempt: No Family history of suicide: No Previous psychiatric stay: No Hopelessness: No Smoker: No Protective Factors Assessment : Yes Employed: Yes Stable relationships: Yes Supportive family: Yes Good rapport with provider: Yes Absence of risk factors above: No Data Vital Signs Last 24 Hrs: Date Time Temp Pulse Resp B/P (MAP) Pulse Ox O2 Delivery O2 Flow Rate FiO2 04/28/17 06:57 36.9 52 16 120/79 61 101/67
--- NOTE | 2017-04-28 23:11 | NUR ---
Pt attended and participated in groups this evening. He rated his mood a "8" and that he felt "excited and hopeful." Pt had a visit with his and child this afternoon. He told staff that he felt that the visit made him realize that he was feeling right in his decision that he and his should not be together. He also said that he plans to stay at his apartment and then go to the co-parenting house to see his son. Pt has been out in the milieu interacting appropriately with his peers. Pt continues on q 15 minute checks.
[2017-04-29] MEDS: hydrOXYzine HCL 25 MG TAB PO PRN (00:07)
--- NOTE | 2017-04-29 00:08 | NUR ---
Patient requested vistaril for sleep. Received 50 mg prn sleep
--- NOTE | 2017-04-29 02:04 | NUR ---
santosh has been asleep since 99. he had received a prn dose of hs vistaril for sleep aid.
--- NOTE | 2017-04-29 04:18 | NUR ---
24 hour chart orders reviewed
[2017-04-29 06:57] VITALS: BP_SYST 106; BP_SYST 110; BP_DIAS 64; BP_DIAS 74; PULSE 58; PULSE 66; TEMP 36.9
[2017-04-29] MEDS: SERTRALINE HCL 50 MG TAB PO SCH (08:20)
--- NOTE | 2017-04-29 12:41 | NUR ---
Disch summary: Pt denies thoughts/intent to harm himself. His mood conts to stabilize. Depressive symptoms improving. Pt is feeling more hopeful. Demonstrating improved ability to cope with stress. Family meeting completed. Aftercare arranged.
[2017-04-29] MEDS ORDERED: ZLF50 PO (13:03)
[2017-04-29] MEDS ORDERED: LAMO1TAB21 PO (13:03)
--- NOTE | 2017-04-29 13:05 | Discharge Instructions ---
Discharge Information Report Includes Report will include the: Discharge Instructions & Summary Admission Admission Date / Time: Apr 24, 2017 at 17:04 Reason for Admission: Bipolar Discharge Discharge Diagnosis / Problem: Bipolar Disorder Condition at Discharge: improved Discharge Goals Goal(s): Improve function Activity Recommendations Activity Limitations: resume your previous activity . Instructions / Follow-Up Instructions / Follow-Up . SPECIAL CARE INSTRUCTIONS: 1. Follow through with your scheduled aftercare appointments. If unable to keep an appointment, please call to reschedule. 2. Take your medication only as prescribed. Medication should not be changed or stopped without the approval of your doctor. In the event of worsening symptoms or concerns about side effects, contact your doctor immediately. 3. Utilize new healthy coping skills, anger management skills, and stress management skills learned during your hospitalization. Journal feelings and process them with a support person. Identify stressors or situations that may result in relapse, deterioration or inappropriate behaviors and develop a plan to deal with those issues. 4. If your coping skills are ineffective and you are in crisis, contact your outpatient providers for direction. If unable to reach your providers, please call the CAN HELP LINE AT or go to the closest Emergency Room. 5. Avoid alcohol and un-prescribed drugs. 6. You have been provided with the Mental Health Advance Directives Pamphlet for your review. AFTERCARE APPOINTMENTS: * Please call your insurance company prior to your scheduled appointment to confirm your aftercare providers are covered. Take your insurance information to your appointments. . Discharge / Aftercare Planning Primary Care Physician: Name: none Psychiatrist: Name: Dr. Serrano - [email or web address] Date of Appointment: May 16, 2017 Time of Appointment: 12:45 pm Therapist: Name Of Therapist: Rickey Humphrey [email or web address] (..Bring Credit Card to appointment ) Date of Appointment: May 01, 2017 Time of Appointment: 8:00 am Appointment Comments: [address] [facility] [address] [facility] [address] Other: Name of Appointment #1: 0. . Follow-Up Care Plan for Follow-Up Care: attend upcoming appts with therapist and psychiatrist and raise lamictal to 150mg a day and take zolfot at 75mg a day and vistaril as needed at 25mg up to every 4 hours for anxiety and 50mg at bedtime prn for insomnia Current Hospital Diet Patient's current hospital diet: Regular Diet Discharge Diet Recommended Diet: Regular Diet Procedures Procedures Performed: No Pending Studies Pending Studies at Discharge: No Medical Emergencies . Who to Call and When: Medical Emergencies: For questions or emergencies related to your hospital stay, please contact the Inpatient Behavioral Health Unit at [phone]. A intake clinician is on-call 19/11 for the Behavioral Health Unit for emergencies At any time you feel your situation is an emergency, you may also call 911 immediately. . Non-Emergent Contact Non-Emergency issues call your: Primary Care Provider, Psychiatrist, Therapist Advance Directives Do You Have an Existing Mental: No Existing Living Will: No Existing Power of Custom Wood Stair Builder: No Advance Directives Info Given: To Pt/S.O. Advance Directives Reason: Declines as Mental Health Visit. Discharge Summary Admission HPI Per the Admitting provider: The patient is a 31-year-old man who was admitted from the emergency department to the behavioral health unit, [address] [place] [address], on the afternoon of 04/24/2017. The patient has been experiencing a number of significant psychosocial stressors, primarily related to his marriage and child custody issues, and reports that he has been having intermittent suicidal thoughts for about a month. Yesterday, following an argument with his estranged , he secured a rope (in her presence), indicated his intent to kill himself, and go away with a rope. The patient's estranged and her brother followed him in another car, the police were contacted, a pursued followed, the patient abandon his car and attempted to run away from the police on foot, and he was eventually tasered by the police who then brought him to the emergency room for evaluation. In the emergency room, the patient voiced suicidal ideation and acknowledged that he had had a plan to hang himself. The precipitating factors as identified by the patient are as follows: The patient and his of 3 years had been having marital difficulties and had entered couples counseling. In November of this year , the patient's suddenly announced in a couple's session that it was her intent to separate from the patient. She evidently cited his temper, and reference to an episode several weeks earlier during which he an argument, he had punched a wall. The couple had been living in [place] up until that point, but the patient's moved to [place] in order to enter a PhD program at [employer]. The couple has a 3-year-old son, Regino, and for a time the patient traveled from [place] to [place] on the weekends in order to see Regino. Eventually, the patient got an apartment in [place] with some undergraduates and attempted to reconcile with his now estranged , while also seeing his son on a regular basis at her parents house. As described by the patient, the couple engaged in mutual approach-avoidance, with both parties engage in the other, and then precipitously announcing a plan to completely terminate the relationship. At least one point, the patient filed for divorce and then rescinded the filing. The patient's at one point filed for several custody of their son, and then withdrew the filing. According to the patient, the estranged would seek to accompany the patient and his son when they were spending time together, and the estranged would also invite the patient to family functions. On the day of admission , the couple was sitting in a car and having an argument when the patient told his that if she were to get out of the car and walk away, rather than completing the argument, he would consider that to be the "final straw," and in the marriage. The indicated that this would be acceptable, got out of the car, and at that point the patient proceeded to a barn where he secured rope and threatened suicide, as described above. The patient reports that he was given a diagnosis of bipolar disorder 2 years ago following a six-week episode during which he had decreased sleep, decreased desire for sleep, increased energy, expansive and irritable mood, and worked as many as 15 hours a day, sometimes until 2:00 in the morning. Patient also reports that he was given the diagnosis of ADHD as a child and currently is taking Vyvanse. He denies any previous or subsequent episodes of arturo, and reports that he has never previously had an episode of depression. He gives a history of drinking "3 or 4 beers" several times a week, and has episodically used other drugs, such as marijuana and LSD with friends. He denies that he had been drinking or using drugs in close proximity with the events described above on the day of admission. His current medications, as prescribed by a psychiatrist, Dr. Irlanda Solomon, in [place] include lamotrigine 100 mg daily and sertraline 50 mg daily , with Vistaril 25 mg 3 times a day as needed for anxiety or sleep. He tells me that his dose of lamotrigine has never been higher than 100 mg daily. He was briefly taking sertraline 100 mg daily, but found that this caused him to be so sanguine that he stopped feeling motivated or concerned about work. He feels that sertraline 50 mg a day has helped with his anxiety and anger issues. Currently, the patient says that he feels that his problems are not necessarily related to the diagnosis of bipolar ADHD, but, rather, to feeling overwhelmingly stressed by his life circumstances. Hospital Course (1) Bipolar 1 disorder, depressed 04/25/17 -- Today, we will increase his dose of lamotrigine from 100 mg daily 250 mg daily. Also, while we are aware of the risk of potential inducing a manic episode in this patient, he reports that he has responded favorably to sertraline in terms of his anxiety levels, and today I'm will increase his dose of sertraline from 50 mg daily to 75 mg daily. 04/26 - Pt feeling defeated by family meeting with . This is apparent during today's interaction. Pt states he has not yet noticed improvement in his mood and feels that this meeting has caused his progress to halt until he is able to get answers from his . Pt denies side effects to medications and states he has been tolerating them well. Will continue on 125mg of Lamictal as patient states he increases by 25mg every week rather than following traditional taper scheduling. Will keep dose of sertraline at 75mg daily and reassess when patient is better able to reflect on the meeting and his situation. 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 Pt planning to continuing living apart from and aim to not try to process their relationship with her for the time being. Pt mood has been improved and stable and without manic symptoms and not been depressed. He is without suicidality ideation or homicidal ideation and has been contained in his behaviors and reactions. He is planning to resume work on 05/01/17 seeking a day to transition before resuming work. He will use vistaril 25mg prn anxiety and 50mg prn insomnia since was prescribed vistaril previously as an outpatient and has found it helpful especially for his sleep during this admission. Plan is to increase lamictal to 150mg as of tomorrow given the toelrability at 125mg qd doses to date and will continue zoloft which is now at 75mg a day. Pt is planning to transition to Dr. Serrano as a more local psychiatrist since previous psychiatric appts where in [place] and pt now resides in [place]. Pt will continue appointments with Rickey Humphrey for psychotherapy with next appointment being on 05/01/17 (2) Suicidal ideation pt was on q15 minutes checks while admitted. SI resolved and pt has been focused on his safety plan and was processing it throughout the hospital stay as a source of adding structure for his support and coping strategies for once he is discharged. Risk Factors Assessment Male: Yes : Yes /single/: No (the patient has been from his since November 2016.) Higher / Fall in social status: No Health problems: No Mental Health Diagnoses: Yes Substance use disorders: No Previous attempt: No Family history of suicide: No Previous psychiatric stay: No Hopelessness: No Smoker: No Protective Factors Assessment : Yes Employed: Yes Stable relationships: Yes Supportive family: Yes Good rapport with provider: Yes Absence of risk factors above: No Day of Discharge Assessment Patient is in good mood and with congruent euthymic affect. He is processing and addressing the stressors of his separation from his and addressing how he will handle the emotional tensions of this separation, which he is now on board with. He is without SI or HI, denied hallucinations, organized in thought process that is linear and goal directed. He has adequate/appropriate impulse control and good insight and judgment is improved. His speech is normal as is his psychomotor activity. He will raise his lamictal to 150mg a day starting 06/16 and is taking Zoloft at 75mg a day and vistaril at 25mg prn up to qhours for anxiety and 50mg prn hs for insomnia. He has adequate supplies of these medications to get to his psychiatric appointment. He is planning to attend his upcoming appointment with Rickey Humphrey for psychotherapy on and will see Dr. Serrano as a more local psychiatrist on 05/16/17 . Laboratory Test 04/24/17 12:15 04/24/17 12:39 Urine Color YELLOW Urine Appearance CLEAR Urine pH 5.5 Urine Specific [place] 1.025 Urine Protein 1+ Urine Glucose (UA) NEG Urine Ketones NEG Urine Occult Blood NEG Urine Nitrite NEG Urine Bilirubin NEG Urine Urobilinogen NEG Urine Leukocyte Esterase NEG Urine WBC (Auto) 1-5 Urine RBC (Auto) 0-4 Urine Hyaline Casts (Auto) 1-5 Urine Epithelial Cells (Auto) 5-10 Urine Bacteria (Auto) NEG Urine Sperm (Auto) PRESENT Urine Synthetic Stimulants Pending Urine Opiates Screen NEG Urine Methadone, Qualitative NEG Urine Barbiturates NEG Urine Phencyclidine (PCP) Level NEG Urine Amphetamines Confirmation Pending Ur Amphetamine/Methamphetamine POS Urine Methamphetamine Confirmation Pending MDMA (Ecstasy) Screen NEG Urine Benzodiazepines Screen NEG Urine Cocaine Metabolite NEG Cannabinoids Comment Pending Urine Synthetic Cannabinoids Pending Ur Synthetic Cannabinoids Confirm Pending Urine Marijuana (THC) NEG White Blood Count 5.59 Red Blood Count 5.59 Hemoglobin 16.8 Hematocrit 47.1 Mean Corpuscular Volume 84.3 Mean Corpuscular Hemoglobin 30.1 Mean Corpuscular Hemoglobin Concent 35.7 Platelet Count 206 Mean Platelet Volume 9.5 Neutrophils (%) (Auto) 65.5 Lymphocytes (%) (Auto) 26.5 Monocytes (%) (Auto) 6.3 Eosinophils (%) (Auto) 1.3 Basophils (%) (Auto) 0.2 Neutrophils # (Auto) 3.67 Lymphocytes # (Auto) 1.48 Monocytes # (Auto) 0.35 Eosinophils # (Auto) 0.07 Basophils # (Auto) 0.01 RDW Standard Deviation 39.7 RDW Coefficient of Variation 13.0 Immature Granulocyte % (Auto) 0.2 Immature Granulocyte # (Auto) 0.01 Sodium Level 135 Potassium Level 4.5 Chloride Level 102 Carbon Dioxide Level 28 Anion Gap 5.0 Blood Urea Nitrogen 22 Creatinine 1.22 Est Creatinine Clear Calc Drug Dose 86.4 Estimated GFR () 92.3 Estimated GFR (Non- 79.6 BUN/Creatinine Ratio 18.1 Random Glucose 113 Calcium Level 9.0 Total Bilirubin 0.4 Aspartate Amino Transferase (AST) 26 Alanine Aminotransferase (ALT) 39 Alkaline Phosphatase 84 Total Protein 8.5 Albumin 4.3 Globulin 4.2 Albumin/Globulin Ratio 1.0 Thyroid Stimulating Hormone (TSH) 2.380 Salicylates Level < 1.7 Acetaminophen Level < 2 Ethyl Alcohol mg/dL < 3.0 Total Time Total Time Included: examination of the patient, discharge planning, medication reconciliation Tobacco Cessation at Discharge Smoking Status: Former Smoker FDA approved Prescription: non-smoker
--- NOTE | 2017-04-29 14:15 | NUR ---
Pt disch home. Disch instructions provided, verbalized understanding. Belongings returned. Pt given [facility] paperwork.
== END 2017-04-29 14:15 | disposition home or self-care (01) | DRG 885 ==
LOC: EDBD 11:54 → C.EDA 11:57 → C.MHU 17:04
PROVIDERS: ADMIT Psychiatry & Neurology Child & Adolescent Psychiatry; ATTEND Psychiatry & Neurology Child & Adolescent Psychiatry
DX: F31.9 Bipolar disorder, unspecified (principal); R45.851 Suicidal ideations; Z79.899 Other long term (current) drug therapy; Z87.891 Personal history of nicotine dependence; Z81.8 Family history of other mental and behavioral disorders

== ENCOUNTER → 2017-08-12 | Outpatient (CLI) | payer BC ==
[~2017-08-12] MED LIST changes: -DICL1GEL28 TOP; +HYDR-3124 PO; +LISD30CA4 PO; -MULT-506 PO; +ZLF50 PO
--- NOTE | 2017-08-12 07:21 | DIAGNOSTIC IMAGING REPORT ---
CT RIGHT HAND NO CONTRAST CT DOSE: 254.48 mGy.cm CLINICAL HISTORY: Right hand. Fifth metacarpal fracture. TECHNIQUE: Helical images were acquired in the transverse plane. Sagittal and coronal reformatted images were acquired. A dose lowering technique was utilized adhering to the principles of ALARA. COMPARISON STUDY: None. FINDINGS: There is a comminuted mildly impacted intra-articular fracture involving the base of the fifth metacarpal. There is 6 mm of maximal fracture fragment distraction. No additional fractures are visualized. There is no dislocation. IMPRESSION: Comminuted intra-articular fracture involving the base the fifth metacarpal with 6 mm of maximal fracture fragment distraction Electronically signed by: Lowell Carlson M.D. 08/12/2017 7:20 AM Dictated Date/Time: 08/12/2017 7:15 AM
== END | disposition home or self-care (01) ==
LOC: C.CTS 06:55
DX: S62.316A Displaced fracture of base of fifth metacarpal bone, right hand, initial encounter for closed fracture (principal); X58.XXXA Exposure to other specified factors, initial encounter; M79.641 Pain in right hand